=== PATIENT | male | born 1970 | race Caucasian/White ===

== ENCOUNTER 2016-10-27 15:12 | Emergency (ER) | payer BC ==
[~2016-10-27] VITALS: Ht 177.8 cm; Wt 77.1 kg
[2016-10-27 15:25] VITALS: BP 157/96
--- NOTE | 2016-10-27 15:54 | PHYS DOC ---
Past Medical History Past Medical History: Cancer, Hypertension, Other Additional Past Medical Histor: MULTIPLE MYELOMA CA, CHEMO, RADIATION Past Surgical History: Other Additional Past Surgical Histo: STEM-CELL TRANSPLANT, L5-S1 FUSION Alcohol Use: Occasionally Drug Use: None Adult General Chief Complaint Chief Complaint: LACERATION/AVULSION [facility] HPI Patient is a 46 year old male presents to the emergency department stating that he had smashed his finger in between 2 panels. Patient states that he is here for the rectum oral barbecue. He does have a laceration to the right middle finger that is approximately 3 cm in length. Bleeding is currently controlled. Patient is unsure when his last tetanus immunization occurred. Patient does state he is right-hand dominant. Review of Systems Review of Systems Constitutional: Denies fever or chills [] Eyes: Denies change in visual acuity, redness, or eye pain [] HENT: Denies nasal congestion or sore throat [] Respiratory: Denies cough or shortness of breath [] Cardiovascular: No additional information not addressed in HPI [] GI: Denies abdominal pain, nausea, vomiting, bloody stools or diarrhea [] : Denies dysuria or hematuria [] Musculoskeletal: Denies back pain Right middle finger pain with laceration Integument: Denies rash or skin lesions [] Neurologic: Denies headache, focal weakness or sensory changes [] Endocrine: Denies polyuria or polydipsia [] Current Medications Current Medications Current Medications Medications (Trade) Dose Ordered Sig/Taryn Start Time Stop Time Status Last Admin Dose Admin Diphtheria/ Tetanus/Acell Pertussis (Boostrix) 0.5 ml ONCE ONCE 10/27/16 16:00 10/27/16 16:01 DC 10/27/16 16:28 0.5 ML Lidocaine/Sodium Bicarbonate (Buffered Lidocaine 1%) 20 ml 1X ONCE 10/27/16 16:00 10/27/16 16:01 DC 10/27/16 16:27 20 ML Neomycin/ Polymyxin/ Bacitracin (Triple Antibiotic Ointment) 3 pkt 1X ONCE 10/27/16 16:45 10/27/16 16:46 Allergies Allergies Allergies Coded Allergies Type Severity Reaction Last Updated Verified immune globulin,gamma (IgG) human Allergy Severe CARDIAC ARREST 10/27/16 Yes Physical Exam Physical Exam Constitutional: Well developed, well nourished, no acute distress, non-toxic appearance. [] HENT: Normocephalic, atraumatic, bilateral external ears normal, oropharynx moist, no oral exudates, nose normal. [] Eyes: PERRLA, EOMI, conjunctiva normal, no discharge. [] Neck: Normal range of motion, no tenderness, supple, no stridor. [] Cardiovascular:Heart rate regular rhythm Lungs & Thorax: no respiratory distress Skin: Warm, dry, no erythema, no rash. [] Back: No tenderness Extremities: Right finger, middle tenderness, laceration 3 cm in length with bleeding controlled. No cyanosis, no clubbing, ROM intact, no edema. [] Neurologic: Alert and oriented X 3, normal motor function, normal sensory function, no focal deficits noted. [] Psychologic: Affect normal, judgement normal, mood normal. [] Current Patient Data Vital Signs Vital Signs Date Time Temp Pulse Resp B/P (MAP) Pulse Ox O2 Delivery O2 Flow Rate FiO2 10/27/16 15:25 98.8 111 18 96 Room Air 98.8 EKG EKG [] Radiology/Procedures Radiology/Procedures [][facility] [address] [place] [address] IMAGING REPORT Signed PATIENT: PADILLA HERNDON ACCOUNT: [id number] : 1970 LOCATION: ER AGE: 46 SEX: M EXAM STATUS: REG ER ORD. PHYSICIAN: WENDY MCDANIEL APRN REASON: 3rd finger smashed in between panels PROCEDURE: FINGER(S) RIGHT Three-view right third finger radiographs 10/27/2016 Clinical history: Smash injury to the right third finger with laceration. A PA digital radiograph of the right hand was obtained. Oblique and lateral digital radiographs of the right third finger were obtained. No fracture or dislocation of the right third finger is seen. No radiopaque foreign body is noted. Impression: No fracture or dislocation of the right third finger seen. DICTATED and SIGNED BY: AUGUSTINE VINCENT MD DATE: 10/27/16 1617 CC: WENDY MCDANIEL APRN; NO PCP; NON,STAFF ~ Course & Med Decision Making Course & Med Decision Making Pertinent Labs and Imaging studies reviewed. (See chart for details) Patient was provided with discharge instructions to keep the area clean and dry. Patient was provided with signs and symptoms of infection: Redness, warmth , tenderness or any yellow/greenish transient become from the site. Patient was instructed sutures out in 7-10 days. He'll be provided with a prescription for infection as the patient is from out of town here for the [employer]. Patient agrees with discharge instructions, treatment regimens and follow-up recommendations. All questions and concerns been answered at patient's bedside. [] Dragon Disclaimer Dragon Disclaimer This electronic medical record was generated, in whole or in part, using a voice recognition dictation system. Departure Departure Impression: Primary Impression: Laceration Disposition: HOME, SELF-CARE Condition: STABLE Patient Instructions: Laceration Care, Adult, [id number] Additional Instructions: Keep the area clean and dry. Clean the site twice daily with soap and water and apply antibiotic ointment to the area. Tylenol or ibuprofen for pain and discomfort. Ice packs on 20 minutes off 20 minutes several times a day. Elevation as much as possible. Signs and symptoms of infection: Redness, warmth, tenderness or any yellow/ greenish drainage this should occur you may start taking the antibiotics as prescribed. Sutures out in the next 7-10 days. Return back to emergency department sign symptoms of become worse. Scripts Cephalexin (CEPHALEXIN) 500 Mg Tablet 1 TAB PO BID, #20 TAB Prov: WENDY MCDANIEL APRN 10/27/16 Laceration/Wound Repair Laceration/Wound Repair : Wound Location: upper extremity Wound's Depth, Shape: superficial Wound Length (cm): 3 Wound Explored: clean Irrigated w/ Saline (ccs): 100 Betadine Prep?: Yes Anesthesia: 1% Lidocaine Volume Anesthetic (ccs): 6 Wound Debrided: minimal Wound Repaired With: sutures Suture Size/Type: 4:0, nylon Number of Sutures: 5 Progress Digital block was completed with 1 % buffered lidocaine. Site was cleaned with chlorhexidine. Site was irrigated with 100 mL of normal saline. 4-0 nylon was used to suture the area with 5 interrupted sutures placed. WENDY MCDANIEL APRN Oct 27, 2016 15:54
[2016-10-27] MEDS ORDERED: LIDOCAINE 1% / SOD BICARB 8.4% 20 ML VIAL. IJ ONE (16:00)
[2016-10-27] MEDS ORDERED: DIPHTH,PERTUSS(ACELL),TET TOX 0.5 ML DISP.SYRIN. VAX IM ONE (16:00)
--- NOTE | 2016-10-27 16:21 | RAD ---
Three-view right third finger radiographs 10/27/2016 Clinical history: Smash injury to the right third finger with laceration. A PA digital radiograph of the right hand was obtained. Oblique and lateral digital radiographs of the right third finger were obtained. No fracture or dislocation of the right third finger is seen. No radiopaque foreign body is noted. Impression: No fracture or dislocation of the right third finger seen.
[2016-10-27] MEDS ORDERED: CEPH500T PO (16:40)
[2016-10-27] MEDS ORDERED: NEOMY/BACITR/POLYMYXIN OINT PACKET. TP ONE (16:45)
== END 2016-10-27 16:50 | disposition home or self-care (01) ==
LOC: ER 15:12
DX: S61.212A Laceration without foreign body of right middle finger without damage to nail, initial encounter (principal); I10 Essential (primary) hypertension; Z88.8 Allergy status to other drugs, medicaments and biological substances; W23.0XXA Caught, crushed, jammed, or pinched between moving objects, initial encounter; Y93.89 Activity, other specified; Y92.89 Other specified places as the place of occurrence of the external cause; Y99.8 Other external cause status
CPT/HCPCS: 12002; 73140; 90471; 90715; 99284-25